=== PATIENT | female | born 1980 | race African-American/Black ===

== ENCOUNTER → 2017-04-09 | Outpatient (CLI) | payer OTHER ==
[~2017-04-09] MED LIST: CELEBREX PO; EFFEXOR37.5 MG PO; FETZIMA40 MG PO; HYDROCHLOROTHIA25 MG PO; LISINOPRIL10 MG PO; ZANAFLEX4 M1 PO
--- NOTE | ~2017-04-09 | CT17 ---
[facility] A Service of [facility] RADIOLOGY TEXT RESULTS PATIENT: ALDA SMITH LOCATION: [facility] : 80 UNIT #: [id number] AGE: [address]: Justo Henson MD SEX: F ORDER DR: [id number] [facility] [address] [place], [place] [address] [id number] O MR#: [id number] [facility] #: [id number] NAME: ALDA SMITH : 1980 SEX: F STUDY DATE/TIME: 04/09/2017 10:24 UNIT: [facility] ROOM: STUDY DESCRIPTION: CT Angio Head Attending Physician: Justo Henson M.D. Referring Physician: Justo Henson M.D. Ordering Physician: Justo Henson M.D. Primary Care Physician: Justo Henson M.D. MEDICAL IMAGING REPORT This report is preliminary unless electronic signature is present EXAM CT scan of the head with contrast, with CT angiography. HISTORY Headaches and hypertension, accompanied by blurred vision. The headaches are predominately frontal. Symptoms for the past 3-4 months. TECHNIQUE Axial imaging was obtained through the head with contrast. 100 mL of Isovue was used. CT angiography was performed with curved planar reformats 3-D volumetric imaging and thick sliding MIPs. This CT exam was performed with one or more of the following radiation dose reduction techniques: automatic exposure control, adjustment of mA and/or kV according to patient size, and iterative reconstruction. FINDINGS Extravascular structures are unremarkable. The CT angiographic study shows wide patency of both carotid siphons. The intracranial circulation is normal with no evidence of aneurysm, vascular malformation or major branch vessel occlusion. The distal vertebrals are codominant. No significant intracranial stenosis is seen. IMPRESSION Negative CT angiogram. Dictated by... Zachary Noguera M.D. THIS IS AN ELECTRONICALLY VERIFIED REPORT Zachary Noguera M.D. at 04/11/2017 7:14 AM RLF/jt [facility] A Service of [facility] RADIOLOGY TEXT RESULTS PATIENT: ALDA SMITH LOCATION: [facility] : 80 UNIT #: [id number] AGE: [address]: Justo Henson MD SEX: F ORDER DR: TD: 04/10/2017 18:56 JOB #: [id number] MEDICAL IMAGING REPORT Page 1 of 1 COPY
[2017-04-09 15:21] LABS: POC - CREATININE 0.93 mg/dL (0.44-1.03); POC - GFR >60.0 mL/min (>60)
== END | disposition home or self-care (01) ==
LOC: CCAT 09:46
PROVIDERS: Internal Medicine
DX: R51 Headache (principal); I10 Essential (primary) hypertension; G93.2 Benign intracranial hypertension; Z82.49 Family history of ischemic heart disease and other diseases of the circulatory system
CPT/HCPCS: 70496; 82565; Q9967